=== PATIENT | male | born 2000 | race Caucasian/White ===

== ENCOUNTER 2020-07-12 11:03 | Emergency (ER) | payer OTHER ==
[2020-07-12 13:54] LABS: Absolute Lymphocytes (CBC) 1.7 K/uL (0.7-4.9); Basophils % 0.5 % (0-1.3); Hematocrit 46.3 % (39.6-49.0); Lymphocytes % 35.6 % (15.3-44.8); MPV 8.2 fL (7.6-11.3); RBC Red Blood Cell Count 4.98 M/uL (4.33-5.43)
[2020-07-12 14:01] LABS: Protime INR 1.03
[2020-07-12 14:13] LABS: ALT/SGPT 24 U/L (12-78); AST/SGOT 25 U/L (15-37); Albumin 4.7 g/dL (3.4-5.0); Alkaline Phosphatase 55 U/L (45-117); BUN Blood Urea Nitrogen 9 mg/dL (7-18); Bicarbonate 31 mmol/L (21-32); Bilirubin Direct 0.4 mg/dL (0-0.2); Bilirubin Total 2.6 mg/dL (0.2-1.0); Glucose Level 95 mg/dL (74-106); Magnesium 2.4 mg/dL (1.8-2.4); NT PRO-BNP 27 pg/mL (<125); Potassium 4.2 mmol/L (3.5-5.1); Protein, Total 7.6 g/dL (6.4-8.2); Sodium Level 142 mmol/L (136-145); Troponin (Emerg Dept Use Only) < 0.02 ng/mL (0.0-0.045)
--- NOTE | 2020-07-12 15:27 | EDPHYS ---
Physician Documentation [facility] Name: Leonid Moore Age: 19 yrs Sex: Male : 2000 Arrival Date: 07/12/2020 Time: 11:07 Bed 12 Private MD: ED Physician Dallas Baldwin HPI: 07/12 14:05 This 19 yrs old Male presents to ER via Ambulatory with complaints of kb abnormal ekg. 14:05 The patient presents with a history of irregular heart beat. Context: The symptoms kb occur at rest. Onset: The symptoms/episode began/occurred this morning. Duration: The patient or guardian reports multiple episodes. Modifying factors: The symptoms are aggravated by nothing. The symptoms are alleviated by nothing. Associated signs and symptoms: The patient has no apparent associated signs or symptoms. Severity of symptoms: At their worst the symptoms were moderate in the emergency department the symptoms are unchanged. The patient has not experienced similar symptoms in the past. The patient has not recently seen a physician. 14:07 Pt reports he feels his heart beating irregularly. Reports it started this morning. kb Denies chest pain or cardiac history. States his family has a history of heart problems. Historical: - Allergies: 12:03 shrimp; iw - PMHx: 12:03 Raynauds; iw - PSHx: 12:03 None; iw - Immunization history:: Adult Immunizations not up to date. - Social history:: Smoking status: Patient reports the use of cigarette tobacco products, denies chronic smoking, but will smoke occasionally. ROS: 14:07 Constitutional: Negative for fever, chills, and weight loss, Respiratory: Negative for kb shortness of breath, cough, wheezing, and pleuritic chest pain, Abdomen/GI: Negative for abdominal pain, nausea, vomiting, diarrhea, and constipation, Back: Negative for injury and pain, MS/Extremity: Negative for injury and deformity, Skin: Negative for injury, rash, and discoloration, Neuro: Negative for headache, weakness, numbness, tingling, and seizure. 14:07 Cardiovascular: Positive for palpitations, Negative for chest pain, edema, orthopnea. Exam: 14:07 Constitutional: This is a well developed, well nourished patient who is awake, alert, kb and in no acute distress. Head/Face: Normocephalic, atraumatic. Chest/axilla: Normal chest wall appearance and motion. Nontender with no deformity. No lesions are appreciated. Respiratory: Lungs have equal breath sounds bilaterally, clear to auscultation and percussion. No rales, rhonchi or wheezes noted. No increased work of breathing, no retractions or nasal flaring. Abdomen/GI: Soft, non-tender, with normal bowel sounds. No distension or tympany. No guarding or rebound. No evidence of tenderness throughout. Skin: Warm, dry with normal turgor. Normal color with no rashes, no lesions, and no evidence of cellulitis. MS/ Extremity: Pulses equal, no cyanosis. Neurovascular intact. Full, normal range of motion. Neuro: Awake and alert, GCS 15, oriented to person, place, time, and situation. Cranial nerves II-XII grossly intact. Motor strength 5/5 in all extremities. Sensory grossly intact. Cerebellar exam normal. Normal gait. 14:07 Cardiovascular: Rate: normal, Rhythm: irregular, Pulses: no pulse deficits are appreciated, Heart sounds: S1, S2. Vital Signs: 11:53 BP 145 / 74; Pulse 61; Resp 16; Temp 98.5; Pulse Ox 100% ; Weight 90.72 kg; Height 5 iw ft. 8 in. (172.72 cm); 15:50 BP 115 / 51; Pulse 76; Resp 18; Pulse Ox 100% ; kb 11:53 Body Mass Index 30.41 (90.72 kg, 172.72 cm) iw MDM: 13:30 Patient medically screened. 14:07 Data reviewed: vital signs, nurses notes. Data interpreted: Pulse oximetry: on room air kb is 100 %. Interpretation: normal. 15:24 Data reviewed: I have discussed the patient's presentation/case with the attending Emergency Department Physician;. Counseling: I had a detailed discussion with the patient and/or guardian regarding: the historical points, exam findings, and any diagnostic results supporting the discharge/admit diagnosis, lab results, radiology results, the need for outpatient follow up, a presetter operator, to return to the emergency department if symptoms worsen or persist or if there are any questions or concerns that arise at home. ED course: Pt educated to follow up with GI about elevated bilirubin and cardiology about palpitations and PVCs. Verbal understanding received. . 07/12 13:19 Order name: Basic Metabolic Panel; Complete Time: 14:13 kb 07/12 13:19 Order name: CBC with Diff; Complete Time: 14:04 kb 07/12 13:19 Order name: LFT's; Complete Time: 14:13 kb 07/12 13:19 Order name: Magnesium; Complete Time: 14:13 kb 07/12 13:19 Order name: NT PRO-BNP; Complete Time: 14:13 kb 07/12 13:19 Order name: PT-INR; Complete Time: 14:21 kb 07/12 13:19 Order name: Troponin (emerg Dept Use Only); Complete Time: 14:13 kb 07/12 13:19 Order name: XRAY Chest (1 view) kb 07/12 13:19 Order name: Cardiac monitoring; Complete Time: 14:49 kb 07/12 13:19 Order name: IV Saline Lock; Complete Time: 13:44 kb 07/12 13:19 Order name: Labs collected and sent; Complete Time: 13:44 kb Administered Medications: No medications were administered Disposition: 15:54 Co-signature as Attending Physician, Dallas Baldwin MD. ma2 Disposition: 07/12/20 15:26 Discharged to Home. Impression: Palpitations - PVC. - Condition is Stable. - Discharge Instructions: Holter Monitoring, Premature Ventricular Contraction, Palpitations, Mjni-ol-Fexl. - Medication Reconciliation Form, Thank You Letter, Antibiotic Education, Prescription Opioid Use form. - Work release form (07/13/20 10:32). bd - Follow up: Emergency Department; When: As needed; Reason: Worsening of condition. Follow up: Private Physician; When: 2 - 3 days; Reason: Recheck today's complaints, Continuance of care, Re-evaluation by your physician. Signatures: Dispatcher [employer] Lesley Rodriguez FNP-C FNP-Samara June RN RN iw Alzahri, Mohammad, MD MD ma2 Marianna Mccall Corrections: (The following items were deleted from the chart) 15:41 15:26 07/12/2020 15:26 Discharged to Home. Impression: Palpitations - PVC. Condition is kb Stable. Forms are Medication Reconciliation Form, Thank You Letter, Antibiotic Education, Prescription Opioid Use. Follow up: Emergency Department; When: As needed; Reason: Worsening of condition. Follow up: Private Physician; When: 2 - 3 days; Reason: Recheck today's complaints, Continuance of care, Re-evaluation by your physician. kb
--- NOTE | 2020-07-12 15:27 | ER ---
Nurse's Notes [facility] Name: Leonid Moore Age: 19 yrs Sex: Male : 2000 Arrival Date: 07/12/2020 Time: 11:07 Bed 12 Private MD: Diagnosis: Palpitations-PVC Presentation: 07/12 11:53 Chief complaint: Patient states: was drinking on Saturday, and then took preworkout on iw Saturday,. has been feeling his heart beat irregularly since then. Coronavirus screen: At this time, the client does not indicate any symptoms associated with coronavirus-19. Ebola Screen: Patient negative for fever greater than or equal to 101.5 degrees Fahrenheit, and additional compatible Ebola Virus Disease symptoms Patient denies exposure to infectious person. Patient denies travel to an Ebola-affected area in the 21 days before illness onset. No symptoms or risks identified at this time. Initial Sepsis Screen: Does the patient meet any 2 criteria? No. Patient's initial sepsis screen is negative. Does the patient have a suspected source of infection? No. Patient's initial sepsis screen is negative. Risk Assessment: Do you want to hurt yourself or someone else? Patient reports no desire to harm self or others. Onset of symptoms was July 10, 2020. 11:53 Method Of Arrival: Ambulatory iw 11:53 Acuity: JOJO 3 iw Historical: - Allergies: 12:03 shrimp; iw - PMHx: 12:03 Raynauds; iw - PSHx: 12:03 None; iw - Immunization history:: Adult Immunizations not up to date. - Social history:: Smoking status: Patient reports the use of cigarette tobacco products, denies chronic smoking, but will smoke occasionally. Screenin:01 Abuse screen: Denies threats or abuse. Denies injuries from another. Nutritional iw screening: No deficits noted. Tuberculosis screening: No symptoms or risk factors identified. Fall Risk None identified. Assessment: 12:00 General: Appears in no apparent distress. comfortable, Behavior is calm, cooperative. iw Pain: Denies pain. Neuro: Level of Consciousness is awake, alert, obeys commands, Oriented to person, place, time, situation, Moves all extremities. Full function. Cardiovascular: Reports palpitations, Capillary refill < 3 seconds Patient's skin is warm and dry. Respiratory: Respiratory effort is even, unlabored, Respiratory pattern is regular. Musculoskeletal: Range of motion: intact in all extremities. 14:01 Reassessment: Patient appears in no apparent distress at this time. Patient and/or iw family updated on plan of care and expected duration. Pain level reassessed. Patient is alert, oriented x 3, equal unlabored respirations, skin warm/dry/pink. Vital Signs: 11:53 BP 145 / 74; Pulse 61; Resp 16; Temp 98.5; Pulse Ox 100% ; Weight 90.72 kg; Height 5 iw ft. 8 in. (172.72 cm); 15:50 BP 115 / 51; Pulse 76; Resp 18; Pulse Ox 100% ; kb 11:53 Body Mass Index 30.41 (90.72 kg, 172.72 cm) iw ED Course: 11:07 Patient arrived in ED. as 12:02 Triage completed. iw 12:03 Arm band placed on. iw 13:12 Lesley Khalil FNP-C is PHCP. kb 13:12 Dallas Baldwin MD is Attending Physician. kb 13:44 Inserted saline lock: 20 gauge in right antecubital area, using aseptic technique. sr5 Blood collected. Missed attempt(s): 22 gauge in left antecubital area. 14:01 Samara Chávez, RN is Primary Nurse. iw 15:36 XRAY Chest (1 view) In Process Unspecified. EDMS Administered Medications: No medications were administered Outcome: 15:26 Discharge ordered by . kb 15:41 Patient left the ED. kb Signatures: Dispatcher [employer] EDMS Lesley Khalil FNP-C FNP-Lor Young as Samara Chávez, RN RN Olman Gaming RN RN sr5
[2020-07-12 16:04] VITALS: BP 145/74; TEMP 98.5; O2SAT 100
--- NOTE | 2020-07-12 16:11 | RAD REPORT ---
EXAM DESCRIPTION: RAD - Chest Single View - 07/12/2020 3:36 pm CLINICAL HISTORY: PALPITATIONS COMPARISON: Two view chest April 2016 TECHNIQUE: AP portable chest image was obtained 07/12/2020 3:36 pm . FINDINGS: Lungs are clear. Heart and vasculature are normal. No measurable pleural effusion and no p neumothorax. No acute bony abnormality seen. No acute aortic findings suspected. IMPRESSION: No acute cardiopulmonary process. No significant change from comparison study.
--- NOTE | 2020-07-13 12:19 | EKG ---
Test Date: 2020-07-12 Test Time: 11:56:29 Weld Fitter: JAYSON MEASUREMENT RESULTS: Intervals: Rate: 75 CO: 110 QRSD: 98 QT: 420 QTc: 469 [place]: P: 34 CO: 110 QRS: 5 T: 57 INTERPRETIVE STATEMENTS: Sinus rhythm with short CO with frequent premature ventricular complexes Incomplete right bundle branch block Borderline ECG Compared to ECG 05/03/2016 12:22:38 Ventricular premature complex(es) now present Short CO interval now present Incomplete right bundle-branch block now present Sinus arrhythmia no longer present Electronically Signed On 07-13-20 12:15:34 RIB CLOTH KNITTER by Wes Mchugh
== END 2020-07-12 15:41 | disposition home or self-care (01) ==
LOC: ER 11:03
DX: I49.3 Ventricular premature depolarization (principal); R00.2 Palpitations; F17.210 Nicotine dependence, cigarettes, uncomplicated; I73.00 Raynaud's syndrome without gangrene
CPT/HCPCS: 36415; 71045; 80048; 80076; 83735; 83880; 84484; 85025; 85610; 93005; 99283

== ENCOUNTER → 2023-06-20 | Emergency (ER) | payer OTHER ==
--- OUTSIDE RECORDS SUMMARY | 2023-06-20 09:48 | XMS REPORT | Continuity of Care Document ---
Author Name Unknown Address [address] [place] [address] [facility] thconnect Address [address] [place] [address] Care Team Providers Care Trick Rodeo Rider Name Role Phone Pcp, Patient Does Not Have A Primary Care Physic amara DR CHRISTA TAMAYO Attending Clinician Unavailable BRINA HUDSON Attending Clinician Unavailable STEFFI PRINCE Attending Clinician Unavailab Oscar Reyez Attending Clinician Unavailable Sher Sweet MD Attending Clinician [phone] SHER SWEET Attending Clinician Unavailable Nannette Goff RN Attending Clinician Unavailable Only, Oscar Vasquez Test Attending Clinician Unavailabl e Unknown, Attending Attending Clinician Unavailab Rowan Frederick MD Attending Clinician [phone] ROWAN KIRKPATRICK Attending Clinician Unavailable Doctor Unassigned, [place] Attending Clinician U DR CHRISTA Carrington Admitting Clinician Unavailable Payers Payer Name Policy Type Policy Number Effective Date Expirati on Date Source [facility] 3 [id number] 2023 00:00:00 Allergies, Adverse Reactions, Alerts Allergy Name Allergy Type Status Severity Reaction(s) Onset Date Inactive Date Treating Clinician Comments Source SHRIMP DRUG INGREDI Active Med Anaphylaxis 03-06 00:00: 00 [facility] Shrimp Propensi ty to adverse reaction s Active Anaphylaxis 03-06 00:00: 00 Throat swelling and hives [facility] NO KNOWN ALLERGIE S Drug Class Active [facility] Social History Social Habit Start Date Stop Date Quantity Comments Source Gender identity [facility] At 2000 00:00:00 2000 00:00:00 [facility] Smoking Status Start Date Stop Date Source Tobacco smoking consumption unknown [facility] Vital Signs Vital Name Observation Time Observation Value Comments S flor Systolic blood pressure 2023-03-06 15:28:00 138 mm[Hg] [place] [facility] Diastolic blood pressure 2023-03-06 15:28:00 73 mm[Hg] [place] [facility] Heart rate 2023-03-06 15:28:00 60 /min [facility] Body height 2023-03-06 15:28:00 172.7 cm [facility] Body weight 2023-03-06 15:28:00 106.595 kg [facility] BMI 2023-03-06 15:28:00 35.73 kg/m2 [facility] Oxygen saturation in Arterial blood by Pulse oximetry 2023-03-06 15:28:00 100 /min [facility] Procedures Procedure Date / Time Performed Performing Clinicia n Source ASSIGNMENT OF BENEFITS 2023-01-28 17:27:32 Docto r Unassigned, [place] [facility] Encounters Start Date/Time End Date/Time Encounter Type Admission Type Attending Clinicians Care Facility Care Department Encounter ID Source 2018-01-10 06:30:00 Inpatient Christina TAMAYO CHRISTA [facility] [id number] [facility] 2023-07-12 10:15:00 2023-07-12 10:15:00 Outpatient BRINA HUDSON [id number] [facility] 2023-06-14 13:30:00 2023-06-14 13:30:00 Outpatient STEFFI PRINCE [id number] Reyna [facility] 2023-06-14 13:30:00 2023-06-14 13:30:00 Outpatient STEFFI PRINCE [id number] Reyna [facility] 2023-03-06 14:20:00 2023-03-06 14:40:00 Nurse Visit Nurse, Ang Db Sweet, [facility] [id number] [facility] 2023-03-06 14:20:00 2023-03-06 14:20:00 Outpatient R MICKI [facility] [id number] [facility] 2023-01-29 00:00:00 2023-01-29 00:00:00 Letter (Out) [place] Nannette [facility] [id number] [id number] [id number] [id number] [facility] 2023-01-28 12:15:00 2023-01-28 12:33:05 Laboratory Only Only, Ang Db Test Unknown, Attending Estevan [facility] [id number] [id number] [id number] [id number] [facility] 2023-01-28 12:15:00 2023-01-28 12:33:05 Outpatient R ESTEVAN [facility] [id number] [facility] 2023-01-28 00:00:00 2023-01-28 00:00:00 Letter (Out) Doctor Unassigned, [place] [id number] [id number] [facility] 2023-01-28 00:00:00 2023-01-28 00:00:00 Orders Only Doctor Unassigned, [place] [facility] [id number] [id number] [id number] [id number] [facility] Notes Date/Time Note Provider Source 2023-01-28 12:15:00 [id number]:15:00F ormatting of this note might be different from the original.Rubi Moore is a 22 year old male here for COVID Screening with a Nasopharyngeal SwabAll droplet and contact precautions taken with appropriate PPE worn while interacting with patient.Patient educated on plan of care for visit, swabbing technique, risks and benefits of test and length of time to receive results. Verbal consent obtained to perform test. CDC Fact Sheet for Patients nCoV Diagnostic Panel dated 08/23/2019 and Factsheet What to Do if Sick with COVID 19 08/03/19 provided.Patient swabbed per appropriate nasopharyngeal technique, and patient tolerated well. Patient was discharged from the testing clinic in stable condition. Megan Trinidad RN 01/28/2023 12:32 PM [id number]:33:38Nurse [id number] for patient [id number] Note[address] [id number]:[id number] .[id number]. [id number] [facility]"
[2023-06-20 10:31] LABS: Absolute Lymphocytes (CBC) 1.9 K/uL (0.7-4.9); Hematocrit 42.9 % (39.6-49.0); Lymphocytes % 29.4 % (15.3-44.8); MCV 91.3 fL (80-100); MPV 7.6 fL (7.6-11.3); Platelets 264 thou/uL (152-406)
[2023-06-20 10:35] LABS: Protime INR 1.04
[2023-06-20 10:42] LABS: Albumin 3.7 g/dL (3.4-5.0); Potassium 3.6 mEq/L (3.5-5.1); Protein, Total 6.8 g/dL (6.4-8.2)
--- NOTE | 2023-06-20 10:49 | RAD REPORT ---
EXAM DESCRIPTION: CT - Abdomen Pelvis Wo Contrast - 06/20/2023 10:29 am CLINICAL HISTORY: Abdominal pain rectal bleeding COMPARISON: None TECHNIQUE: Computed axial tomography of the abdomen and pelvis was obtained. IV and oral contrast we re not requested. All CT scans are performed using dose optimization technique as appropriate and may include automated exposure control or mA/KV adjustment according to patient size. FINDINGS: The evaluation of solid organs, vessels and bowel is limited secondary to the lack of con trast administration. The liver, spleen, pancreas, adrenals and kidneys appear grossly normal. The appendix is normal. There is no evidence of diverticulitis. The colonic wall thickness is normal Small bilateral inguinal hernias contain fat Small umbilical hernia. Slight posterior subluxation L5 on S1 IMPRESSION: No acute abnormality is displayed.
--- NOTE | 2023-06-20 11:06 | ER ---
Nurse's Notes [facility] Name: Leonid Moore Age: 22 yrs Sex: Male : 2000 Arrival Date: 06/20/2023 Time: 09:45 Bed 13 Private MD: Diagnosis: Rectal bleeding Presentation: 06/20 09:53 Chief complaint: Patient states: watery diarrhea x 3 days ago and nausea, denies aa5 vomiting. Pt reports rectal bleeding today around 0100. 09:53 Acuity: JOJO 3 aa5 09:53 Method Of Arrival: Ambulatory aa5 09:53 Coronavirus screen: congestion. Ebola Screen: Patient denies travel to an aa5 Ebola-affected area in the 21 days before illness onset. Initial Sepsis Screen: Does the patient meet any 2 criteria? No. Patient's initial sepsis screen is negative. Does the patient have a suspected source of infection? No. Patient's initial sepsis screen is negative. Risk Assessment: Do you want to hurt yourself or someone else? Patient reports no desire to harm self or others. Onset of symptoms was June 20, 2023. Historical: - Allergies: 09:53 shrimp; aa5 - PMHx: 09:53 Raynauds; aa5 - PSHx: 09:59 None; aa5 - Immunization history:: Adult Immunizations unknown. - Social history:: Smoking status: Patient denies any tobacco usage or history of. - Family history:: not pertinent. - Hospitalizations: : No recent hospitalization is reported. Screenin:00 [facility] ED Fall Risk Assessment (Adult) History of falling in the last 3 months, aa5 including since admission No falls in past 3 months (0 pts) Confusion or Disorientation No (0 pts) Intoxicated or Sedated No (0 pts) Impaired Gait No (0 pts) Mobility Assist Device Used No (0 pt) Altered Elimination No (0 pt) Score/Fall Risk Level 0 - 2 = Low Risk Oriented to surroundings, Maintained a safe environment, Educated pt \T\ family on fall prevention, incl call for assistance when getting out of bed. Abuse screen: Denies threats or abuse. Nutritional screening: No deficits noted. Tuberculosis screening: No symptoms or risk factors identified. Assessment: 10:00 General: Appears comfortable, Behavior is calm, cooperative. Pain: Denies pain. Neuro: aa5 Level of Consciousness is awake, alert, obeys commands, Oriented to person, place, time, situation. Cardiovascular: Heart tones S1 S2 present Rhythm is regular. Respiratory: Airway is patent Respiratory effort is even, unlabored, Respiratory pattern is regular, symmetrical. GI: Abdomen is round non-distended, Bowel sounds present X 4 quads. Abd is soft and non tender X 4 quads. Reports diarrhea, rectal bleeding, nausea, Patient currently denies vomiting. : No signs and/or symptoms were reported regarding the genitourinary system. EENT: No signs and/or symptoms were reported regarding the EENT system. Derm: Skin is pink, warm \T\ dry. Musculoskeletal: Range of motion: intact in all extremities. 10:26 Reassessment: Pt to CT via wheelchair . aa5 Vital Signs: 09:53 BP 128 / 77; Pulse 76; Resp 18 S; Temp 98.1(O); Pulse Ox 100% on R/A; Weight 103.42 kg aa5 (R); Height 5 ft. 8 in. (R); 09:53 Body Mass Index 34.67 (103.42 kg, 172.72 cm) aa5 ED Course: 09:49 Patient arrived in ED. mg5 09:51 Howie Huffman MD is Attending Physician. rn 09:53 Arm band placed on. aa5 09:53 Patient has correct armband on for positive identification. Placed in gown. Bed in low aa5 position. Call light in reach. Side rails up X 1. 09:55 Triage completed. aa5 10:15 Initial lab(s) drawn, by ny, sent to lab. Inserted saline lock: 20 gauge in right aa5 antecubital area, using aseptic technique. Blood collected. 10:20 Salima Jones, RN is Primary Nurse. aa5 10:30 Abdomen In Process Unspecified. EDMS 12:03 Provided Education on: . kd3 12:03 No provider procedures requiring assistance completed. IV discontinued, intact, kd3 bleeding controlled, No redness/swelling at site. Pressure dressing applied. Administered Medications: No medications were administered Medication: 10:23 VIS not applicable for this client. aa5 Outcome: 11:06 Discharge ordered by . rn 12:03 Discharged to home ambulatory, kd3 12:03 Condition: stable 12:03 Discharge instructions given to patient, Instructed on discharge instructions, follow up and referral plans. Demonstrated understanding of instructions, follow-up care, 12:04 Patient left the ED. kd3 Signatures: Dispatcher [employer] EDHowie Camacho MD MD rn Calderon, Audri RN RN aa5 Yuliana Barrientos RN RN cassia3 Graciela Rivera mg5 Corrections: (The following items were deleted from the chart) 09:59 09:53 BP 128 / 77; Pulse 76bpm; Resp 18bpm; Spontaneous; Pulse Ox 100% RA; Temp 98.1F aa5 Oral; aa5
--- NOTE | 2023-06-20 11:06 | EDPHYS ---
Physician Documentation [facility] Name: Leonid Moore Age: 22 yrs Sex: Male : 2000 Arrival Date: 06/20/2023 Time: 09:45 Bed 13 Private MD: ED Physician Howie Huffman HPI: 06/20 10:22 This 22 yrs old Male presents to ER via Ambulatory with complaints of Rectal Bleeding. rn 10:22 The patient presents to the emergency department with bleeding from the rectum/anus, rn that is mild. Onset: The symptoms/episode began/occurred yesterday. Modifying factors: The symptoms are alleviated by nothing, The symptoms are aggravated by bowel movement. The patient has experienced similar episodes in the past. Patient reports diarrhea over the last 2 days, noticed some rectal bleeding that began last night, small amount, started when he was wiping, does not seem mixed with stool. Patient has had this happen twice before in the last year or 2. Has not seen GI. Came in because this is the third time. Other 2 times bleeding resolved on its own without intervention. No fever or vomiting.. Historical: - Allergies: 09:53 shrimp; aa5 - PMHx: 09:53 Raynauds; aa5 - PSHx: 09:59 None; aa5 - Immunization history:: Adult Immunizations unknown. - Social history:: Smoking status: Patient denies any tobacco usage or history of. - Family history:: not pertinent. - Hospitalizations: : No recent hospitalization is reported. ROS: 10:22 Constitutional: Negative for fever, chills, and weight loss, Cardiovascular: Negative rn for chest pain, palpitations, and edema, Respiratory: Negative for shortness of breath, cough, wheezing, and pleuritic chest pain, Abdomen/GI: Negative for abdominal pain, nausea, vomiting, and constipation, Neuro: Negative for headache, weakness, numbness, tingling, and seizure, Exam: 10:22 Constitutional: This is a well developed, well nourished patient who is awake, alert, rn and in no acute distress. Cardiovascular: Regular rate and rhythm. No pulse deficits. Respiratory: No increased work of breathing, no retractions or nasal flaring. Abdomen/GI: Soft, non-tender Vital Signs: 09:53 BP 128 / 77; Pulse 76; Resp 18 S; Temp 98.1(O); Pulse Ox 100% on R/A; Weight 103.42 kg aa5 (R); Height 5 ft. 8 in. (R); 09:53 Body Mass Index 34.67 (103.42 kg, 172.72 cm) aa5 MDM: 09:51 Patient medically screened. rn 11:04 Differential diagnosis: hemorrhoids, fissure, Colitis, enteritis, diverticulitis, rn diverticulosis, inflammatory bowel disease. Data reviewed: vital signs, nurses notes, lab test result(s), radiologic studies, CT scan, and as a result, I will discharge patient. Counseling: I had a detailed discussion with the patient and/or guardian regarding the historical points, exam findings, and any diagnostic results supporting the discharge/admit diagnosis, lab results, radiology results, the need for outpatient follow up, to return to the emergency department if symptoms worsen or persist or if there are any questions or concerns that arise at home. Special discussion: I discussed with the patient/guardian in detail that at this point there is no indication for admission to the hospital. It is understood, however, that if the symptoms persist or worsen the patient needs to return immediately for re-evaluation. Based on the history and exam findings, there is no indication for further emergent testing or inpatient evaluation. I discussed with the patient/guardian the need to see the rice farmer for further evaluation of the symptoms. ED course: Patient without acute findings on CT scan. Normal H\T\H. Normal vitals. Has happened several times before and stopped on its own without intervention. Will discharge home with return precautions and GI follow-up. Discharge. 06/20 09:59 Order name: CBC with Diff; Complete Time: 10:47 06/20 09:59 Order name: CMP; Complete Time: 10:47 06/20 09:59 Order name: Lipase; Complete Time: 10:06/20 09:59 Order name: Protime (+inr); Complete Time: 10:47 06/20 09:59 Order name: Ptt, Activated; Complete Time: 10:47 06/20 10:30 Order name: Abdomen ; Complete Time: 10:57 EDMS 06/20 09:59 Order name: IV Saline Lock; Complete Time: 10:20 06/20 09:59 Order name: Labs collected and sent; Complete Time: 10:20 rn Administered Medications: No medications were administered Disposition Summary: 06/20/23 11:06 Discharge Ordered Notes: Location: Home rn Problem: new rn Symptoms: have improved rn Condition: Stable rn Diagnosis - Rectal bleeding rn Followup: rn - With: Private Physician - When: As needed - Reason: Recheck today's complaints, Re-evaluation by your physician Discharge Instructions: - Discharge Summary Sheet rn - Rectal Bleeding, [id number] rn Forms: - Medication Reconciliation Form rn - Thank You Letter rn - Antibiotic cane furniture maker - Prescription Opioid Use rn - Patient Portal Instructions rn - Leadership Thank You Letter rn Signatures: Dispatcher [employer] Howie Vazquez MD MD rn Salima Jones RN RN aa5 Corrections: (The following items were deleted from the chart) 10:30 10:00 Abdomen Pelvis W Con+CT.RAD.BRZ ordered. EDMS EDMS
[2023-06-20 14:50] VITALS: BP 128/77; TEMP 98.1; O2SAT 100
== END ==
LOC: ER 09:45
DX: K62.5 Hemorrhage of anus and rectum (principal); Z91.013 Allergy to seafood
CPT/HCPCS: 36415; 74176; 80053; 83690; 85025; 85610; 85730; 99283